=== PATIENT | male | born 1940 | race Caucasian/White ===

== ENCOUNTER 2018-02-20 12:06 | Emergency (ER) | payer MEDICARE, BC ==
[~2018-02-20] VITALS: Ht 193 cm; Wt 84.1 kg
[2018-02-20 12:14] VITALS: Ht 193 cm; Wt 84.1 kg
[2018-02-20] MEDS ORDERED: COUMADIN4 MG PO (12:17)
[2018-02-20] MEDS ORDERED: TENORMIN25 MG PO (12:17)
[2018-02-20] MEDS ORDERED: LIPITOR40 MG PO (12:17)
[2018-02-20] MEDS ORDERED: LIPITOR20 MG PO (12:20)
[2018-02-20] MEDS ORDERED: COZAAR50 MG PO (12:20)
[2018-02-20 12:38] LABS: BASOPHILS 0.4 % (0-2); EOSINOPHILS 2.9 % (0-7); HEMATOCRIT 40.3 % (42.0-54.0); HEMOGLOBIN 14.1 g/dL (13.5-17.5); IMMATURE GRANULOCYTES 0.5 % (0-5); LYMPHOCYTES 19.1 % (15-50); MCH 30.1 pg (26.0-34.0); MCV 86.1 fL (80.0-100.0); MEAN PLATELET VOLUME 9.9 fL (7.4-10.4); MONOCYTES 10.2 % (2-11); NEUTROPHILS 66.9 % (40-80); PLATELET COUNT 224 10x3/uL (130-400); RBC 4.68 10x6/uL (4.20-6.10); RDW 12.8 % (11.5-14.5); WBC 10.1 10x3/uL (4.8-10.8)
[2018-02-20 12:45] LABS: APTT 46.9 SECONDS (22.8-39.4); INR 2.87 (0.85-1.17); PROTIME 29.3 SECONDS (11.6-15.0)
[2018-02-20 12:50] LABS: ALBUMIN 4.1 g/dL (3.4-5.0); BILIRUBIN - TOTAL 1.57 mg/dL (0.2-1.3); CALCIUM 9.4 mg/dL (8.5-10.1); CARBON DIOXIDE 25.1 mmol/L (21.0-32.0); CREATININE - SERUM 1.1 mg/dL (0.6-1.3); POTASSIUM - SERUM 4.1 mmol/L (3.5-5.1); PROTEIN - SERUM 8.4 g/dL (6.4-8.2)
[2018-02-20 14:47] VITALS: BP 176/78
== END 2018-02-20 14:49 | disposition home or self-care (01) ==
LOC: D.ER 12:06
PROVIDERS: Family Medicine
DX: K40.90 Unilateral inguinal hernia, without obstruction or gangrene, not specified as recurrent (principal)

== ENCOUNTER 2018-03-04 09:35 | Day surgery (SDC) | payer MEDICARE, BC ==
[2018-03-03 13:05] LABS: BASOPHILS 0.6 % (0-2); EOSINOPHILS 3.1 % (0-7); HEMATOCRIT 38.5 % (42.0-54.0); HEMOGLOBIN 13.1 g/dL (13.5-17.5); IMMATURE GRANULOCYTES 0.5 % (0-5); LYMPHOCYTES 16.8 % (15-50); MCV 88.3 fL (80.0-100.0); MEAN PLATELET VOLUME 9.7 fL (7.4-10.4); MONOCYTES 10.5 % (2-11); NEUTROPHILS 68.5 % (40-80); PLATELET COUNT 210 10x3/uL (130-400); RBC 4.36 10x6/uL (4.20-6.10); RDW 12.8 % (11.5-14.5); WBC 8.3 10x3/uL (4.8-10.8)
[2018-03-03 13:26] LABS: APTT 34.2 SECONDS (22.8-39.4); INR 1.61 (0.85-1.17); PROTIME 18.5 SECONDS (11.6-15.0)
[2018-03-03 13:39] LABS: ANION GAP 15.9 mmol/L (8-16); CARBON DIOXIDE 27.6 mmol/L (21.0-32.0); CREATININE - SERUM 1.1 mg/dL (0.6-1.3); POTASSIUM - SERUM 4.5 mmol/L (3.5-5.1)
[~2018-03-04] VITALS: Ht 193 cm; Wt 83.9 kg
[~2018-03-04 09:35] MED LIST: ASCORBIC ACID500 MG; BAYER CHEWABLE81 MG PO; COUMADIN4 MG PO; COZAAR50 MG PO; FISH OIL 1,0001 CA1; LIPITOR20 MG PO; LIPITOR40 MG PO; TENORMIN25 MG PO; TOZAL SOFTGEL1 EACH PO; VITAMIN E400 UNI2 PO
[2018-03-04 10:35] VITALS: BP 178/77; Ht 193 cm; Wt 83.9 kg
[2018-03-04] MEDS ORDERED: NORCO 10-325 TA1 TAB PO (13:11)
--- NOTE | 2018-03-04 13:49 | NUR ---
AT [address] ALEXANDER REGARDING ELEVATED BLOOD PRESSURE 191/81. VERBAL ORDERS RECEIVED FROM DR ALEXANDER TO ADMINISTER HYDRALAZINE 10MG X1 IN PACU NOW. ORDERS RECEIVED AND IMPLEMENTED. WILL CONTINUE TO MONITOR.
--- NOTE | 2018-03-11 11:56 | OP ---
PATIENT NAME: JAMES PENN MEDICAL RECORD: [id number] :44 LOCATION:[facility] ADMISSION DATE: SURGEON: PRASHANT ZHONG MD DATE OF OPERATION: 03/04/2018 PREOPERATIVE DIAGNOSES: 1. Left inguinal hernia. 2. Atrial fibrillation. 3. Coronary artery disease. 4. Hypertension. 5. Hypercholesterolemia. POSTOPERATIVE DIAGNOSES: 1. Left inguinal hernia. 2. Atrial fibrillation. 3. Coronary artery disease. 4. Hypertension. 5. Hypercholesterolemia. PROCEDURE IN DETAIL: Left inguinal hernia repair with medium PHS mesh. SURGEON: Prashant Zhong MD ERECTING ENGINEER: Adilia Ferro APRN REPORT OF PROCEDURE: The patient's left groin was prepped and draped in sterile fashion. An oblique incision was made above the inguinal ligament. Electrocautery was used to dissect through the subcutaneous tissues down to the external oblique fascia. This fascia was opened up to the external ring using electrocautery. The ilioinguinal nerve was found and high ligated. The spermatic cord was elevated and a Deep Run was placed around it. The patient had a direct hernia defect which was fat containing. This defect was dissected free and pushed back into the abdominal cavity. The preperitoneal space of Retzius was then opened up in all directions and a medium PHS mesh was inserted. This was sutured down on all sides using multiple interrupted 0 Vicryls. The wound was then irrigated out with normal saline and care was taken to assure there was no sign of any bleeding. At this point, the external oblique fascia was closed with running 2-0 Vicryl, Zachary's was closed with interrupted 3-0 Vicryl and the skin was closed with running subcutaneous 5-0 Monocryl. A total of 10 mL of 0.25% Marcaine with epinephrine was infused into the surrounding tissues and the wound was dressed appropriately. COMPLICATIONS: None. CONDITION: Stable. ANESTHESIA: General endotracheal and local. BLOOD LOSS: Minimal. TRANSINT:[id number] Voice Confirmation ID: [id number] DOCUMENT ID: [id number] OPERATIVE REPORT [id number] JAMES PENN PRASHANT ZHONG MD at 1156 CC: TEENA ZAPATA [id number] DICTATION DATE: 03/04/18 1313 [facility]: 03/04/18 1337 [facility] 03/04/18 [facility] [address] [id number]
== END 2018-03-04 17:25 | disposition home or self-care (01) ==
LOC: D.OPS 09:35 → D.PAN 11:45 → D.OPS 12:00
PROVIDERS: Surgery
DX: K40.90 Unilateral inguinal hernia, without obstruction or gangrene, not specified as recurrent (principal); I48.91 Unspecified atrial fibrillation; I25.10 Atherosclerotic heart disease of native coronary artery without angina pectoris; I10 Essential (primary) hypertension; E78.00 Pure hypercholesterolemia, unspecified; Z01.812 Encounter for preprocedural laboratory examination